=== PATIENT | male | born 1940 | race Native Hawaiian/Other Pacific Islander ===

== ENCOUNTER 2017-02-12 00:38 | Outpatient (CLI) | payer OTHER ==
[~2017-02-12 00:38] MED LIST: CARV6.25 PO; LISI5TAB10 PO; PRAVACHOL80 MG PO; TRAM50TA PO; [UNRECOGNIZED DRUG - CODE] INJ
== END 2017-02-12 01:15 | disposition short-term general hospital (02) ==
LOC: AMB 00:38
DX: R09.89 Other specified symptoms and signs involving the circulatory and respiratory systems (principal); R05 Cough; R50.9 Fever, unspecified; R07.89 Other chest pain
CPT/HCPCS: A0425; A0429

== ENCOUNTER 2018-10-07 08:42 | Outpatient (CLI) | payer OTHER, MEDICARE | END 2018-10-07 20:26 | disposition home or self-care (01) | LOC: RAD 08:42 | DX: T14.8XXA Other injury of unspecified body region, initial encounter (principal); S89.82XA Other specified injuries of left lower leg, initial encounter ==

== ENCOUNTER 2019-09-27 03:12 | Emergency (ER) | payer OTHER ==
[~2019-09-27] VITALS: Ht 182.9 cm; Wt 99.8 kg
[2019-09-27 03:25] LABS: PLATELET COUNT 193 K/uL (142-355)
[2019-09-27 03:35] LABS: POTASSIUM 3.5 mmol/L (3.6-5.2); SODIUM 134 mmol/L (136-145)
[2019-09-27 06:15] VITALS: BP 97/42; TEMP 98.4
== END 2019-09-27 06:15 | disposition short-term general hospital (02) ==
LOC: ED 03:12
PROVIDERS: Emergency Medicine Emergency Medical Services
DX: I47.2 Ventricular tachycardia (principal); I46.9 Cardiac arrest, cause unspecified
CPT/HCPCS: 36415; 80053; 82550; 83880; 84484; 85027; 93005; 96365; 96375; 96376; 99291; J0282; J1265; J2405; J2550; J3490